=== PATIENT | female | born 1975 | race Hispanic/Latino ===

== ENCOUNTER 2018-12-30 08:25 | Emergency (ER) | payer OTHER ==
[2018-12-30] MEDS ORDERED: TRAMADOL HCL 50 MG TAB ONE (09:02)
--- NOTE | 2018-12-30 09:33 | EDPHYS ---
Physician Documentation [facility] Name: Winsome Jarrell Age: 43 yrs Sex: Female : 1975 Arrival Date: 12/30/2018 Time: 08:30 Bed 18 Private MD: None, None ED Physician Jamil Kitchen HPI: 12/30 08:46 This 43 yrs old Female presents to ER via Ambulatory with complaints of kdr Headache, Congestion. 08:46 The patient or guardian reports cough, that is intermittent, described as mild, kdr difficulty breathing, flu symptoms, arthralgias, low-grade fever, Facial congestion/sinus pressure, chest congestion and mild cough. Onset: The symptoms/episode began/occurred gradually, 3 day(s) ago. Severity of symptoms: At their worst the symptoms were mild, in the emergency department the symptoms are unchanged. Modifying factors: The symptoms are alleviated by nothing, the symptoms are aggravated by exertion. Associated signs and symptoms: Pertinent positives: sore throat, Pertinent negatives: chest pain, diarrhea, ear ache, vomiting. It is unknown whether or not the patient has had similar symptoms in the past. The patient has not recently seen a physician. Historical: - Allergies: 08:41 No Known Allergies; hb - Home Meds: 08:41 Synthroid Oral [Active]; losartan oral oral [Active]; gabapentin oral oral [Active]; hb Cymbalta oral oral [Active]; Lasix Oral [Active]; - PSHx: 08:41 knee - right; Thyroidectomy; hb - Immunization history:: Adult Immunizations up to date. - Social history:: Smoking status: Patient/guardian denies using tobacco. - Ebola Screening: : No symptoms or risks identified at this time. ROS: 08:46 Constitutional: Negative for fever, chills, and weight loss, Eyes: Negative for injury, kdr pain, redness, and discharge, Neck: Negative for injury, pain, and swelling, Cardiovascular: Negative for chest pain, palpitations, and edema. 08:46 ENT: Positive for sinus congestion, sinus pain, sore throat, Negative for drainage from ear(s), ear pain, Gum pain difficulty swallowing, difficulty handling secretions, hoarseness. Exam: 08:46 Constitutional: This is a well developed, well nourished patient who is awake, alert, kdr and in no acute distress. Head/Face: Normocephalic, atraumatic. Eyes: Pupils equal round and reactive to light, extra-ocular motions intact. Lids and lashes normal. Conjunctiva and sclera are non-icteric and not injected. Cornea within normal limits. Periorbital areas with no swelling, redness, or edema. Neck: Trachea midline, no thyromegaly or masses palpated, and no cervical lymphadenopathy. Supple, full range of motion without nuchal rigidity, or vertebral point tenderness. No Meningismus. Chest/axilla: Normal chest wall appearance and motion. Nontender with no deformity. No lesions are appreciated. Cardiovascular: Regular rate and rhythm with a normal S1 and S2. No gallops, murmurs, or rubs. Normal PMI, no JVD. No pulse deficits. Abdomen/GI: Soft, non-tender, with normal bowel sounds. No distension or tympany. No guarding or rebound. No evidence of tenderness throughout. Back: No spinal tenderness. No costovertebral tenderness. Full range of motion. Skin: Warm, dry with normal turgor. Normal color with no rashes, no lesions, and no evidence of cellulitis. MS/ Extremity: Pulses equal, no cyanosis. Neurovascular intact. Full, normal range of motion. Neuro: Awake and alert, GCS 15, oriented to person, place, time, and situation. Cranial nerves II-XII grossly intact. Motor strength 5/5 in all extremities. Sensory grossly intact. Cerebellar exam normal. Normal gait. Psych: Awake, alert, with orientation to person, place and time. Behavior, mood, and affect are within normal limits. 08:46 Head/face: Sinus tenderness, that is moderate, is located over the right frontal sinus, left frontal sinus, right ethmoid sinus, left ethmoid sinus, right maxillary sinus and left maxillary sinus. 08:46 Respiratory: the patient does not display signs of respiratory distress, Respirations: normal, Breath sounds: are clear throughout. Vital Signs: 08:38 BP 154 / 97; Pulse 71; Resp 16; Temp 98.1; Pulse Ox 100% on R/A; Pain 8/10; hb 09:46 BP 143 / 86; Pulse 71; Resp 18; Pulse Ox 99% on R/A; Pain 5/10; em MDM: 08:46 Data reviewed: vital signs, nurses notes, lab test result(s). Counseling: I had a kdr detailed discussion with the patient and/or guardian regarding: the historical points, exam findings, and any diagnostic results supporting the discharge/admit diagnosis, lab results. 09:32 Patient medically screened. [facility] 12/30 08:45 Order name: Flu; Complete Time: 09:31 kdr 12/30 08:45 Order name: Rapid Strep; Complete Time: 09:31 [facility] 12/30 09:19 Order name: Throat Culture EDMS Administered Medications: 08:57 Drug: traMADol 50 mg Route: PO; em 09:40 Follow up: Response: No adverse reaction; Pain is decreased em Disposition: 12/30/18 09:32 Discharged to Home. Impression: Acute frontal sinusitis, unspecified, Acute maxillary sinusitis, unspecified. - Condition is Stable. - Discharge Instructions: Sinusitis, Adult, [id number]. - Prescriptions for Mucinex DM 30- 600 mg Oral tablet extended release 12 hr - take 1 tablet by ORAL route every 12 hours as needed; 20 tablet. Tramadol 50 mg Oral Tablet - take 1 tablet by ORAL route every 8 hours as needed; 12 tablet. Amoxicillin 500 mg Oral Capsule - take 1 capsule by ORAL route every 8 hours for 10 days; 30 tablet. - Medication Reconciliation Form, Thank You Letter, Antibiotic Education form. - Follow up: None, None; When: 2 - 3 days; Reason: If symptoms return, Further diagnostic work-up, Recheck today's complaints, Continuance of care, Re-evaluation by your physician. - Problem is new. - Symptoms have improved. Signatures: Dispatcher [employer] [facility] Jamil Kitchen MD MD [facility] Joaquin Gonzalez, PLASTICS FACTORY WORKER PLASTICS FACTORY WORKER Marlene Guzmán, ARAVIND RN Corrections: (The following items were deleted from the chart) 09:48 09:32 12/30/2018 09:32 Discharged to Home. Impression: Acute frontal sinusitis, em unspecified; Acute maxillary sinusitis, unspecified. Condition is Stable. Forms are Medication Reconciliation Form, Thank You Letter, Antibiotic Education, Prescription Opioid Use. Follow up: None None; When: 2 - 3 days; Reason: If symptoms return, Further diagnostic work-up, Recheck today's complaints, Continuance of care, Re-evaluation by your physician. Problem is new. Symptoms have improved. kdr
--- NOTE | 2018-12-30 09:33 | ER ---
Nurse's Notes [facility] Name: Winsome Jarrell Age: 43 yrs Sex: Female : 1975 Arrival Date: 12/30/2018 Time: 08:30 Bed 18 Private MD: None, None Diagnosis: Acute frontal sinusitis, unspecified;Acute maxillary sinusitis, unspecified Presentation: 12/30 08:38 Presenting complaint: Sore throat, cough, headache, and sinus congestion x 1 week. hb Denies fever/body aches. Transition of care: patient was not received from another setting of care. Onset of symptoms was December 30, 2018. Risk Assessment: Do you want to hurt yourself or someone else? Patient reports no desire to harm self or others. Initial Sepsis Screen: Does the patient meet any 2 criteria? No. Patient's initial sepsis screen is negative. Does the patient have a suspected source of infection? No. Patient's initial sepsis screen is negative. Care prior to arrival: None. 08:38 Method Of Arrival: Ambulatory hb 08:38 Acuity: XENA 4 hb Historical: - Allergies: 08:41 No Known Allergies; hb - Home Meds: 08:41 Synthroid Oral [Active]; losartan oral oral [Active]; gabapentin oral oral [Active]; hb Cymbalta oral oral [Active]; Lasix Oral [Active]; - PSHx: 08:41 knee - right; Thyroidectomy; hb - Immunization history:: Adult Immunizations up to date. - Social history:: Smoking status: Patient/guardian denies using tobacco. - Ebola Screening: : No symptoms or risks identified at this time. Screenin:41 Abuse screen: Denies threats or abuse. Denies injuries from another. Nutritional hb screening: No deficits noted. Tuberculosis screening: No symptoms or risk factors identified. Fall Risk None identified. Assessment: 08:50 General: Appears in no apparent distress. uncomfortable, Behavior is calm, cooperative, em Denies fever. Pain: Complains of pain in forehead, right eye and left eye Pain currently is 8 out of 10 on a pain scale. Neuro: Level of Consciousness is awake, alert, obeys commands, Oriented to person, place, time, situation. Cardiovascular: Capillary refill < 3 seconds Patient's skin is warm and dry. Respiratory: Reports cough that is productive, pain with cough Airway is patent Respiratory effort is even, unlabored, Respiratory pattern is regular, symmetrical, Breath sounds are clear bilaterally. Denies cough. GI: Abdomen is flat, Patient currently denies. : No signs and/or symptoms were reported regarding the genitourinary system. EENT: Nares are clear Oral mucosa is moist. Throat is reddened has patchy exudate Reports nasal congestion nasal discharge. Derm: Skin is intact, is healthy with good turgor, Skin is pink, warm \T\ dry. Musculoskeletal: Range of motion: intact in all extremities. 09:00 Reassessment: I agree with previous assessment. hb 09:45 Reassessment: Patient appears in no apparent distress at this time. Patient and/or em family updated on plan of care and expected duration. Pain level reassessed. Patient is alert, oriented x 3, equal unlabored respirations, skin warm/dry/pink. rates pain 5/10 Patient states feeling better. Vital Signs: 08:38 BP 154 / 97; Pulse 71; Resp 16; Temp 98.1; Pulse Ox 100% on R/A; Pain 8/10; hb 09:46 BP 143 / 86; Pulse 71; Resp 18; Pulse Ox 99% on R/A; Pain 5/10; em ED Course: 08:30 Patient arrived in ED. sb2 08:30 None, None is Private Physician. sb2 08:33 Jamil Kitchen MD is Attending Physician. kdr 08:38 Arm band placed on. hb 08:39 Triage completed. hb 08:41 Patient has correct armband on for positive identification. Bed in low position. Call hb light in reach. Side rails up X 1. 08:43 Cat Lopes, RN is Primary Nurse. sv 08:57 Flu and/or RSV swab sent to lab. Strep swab sent to lab. em 09:31 None, None is Referral Physician. kdr 09:47 No provider procedures requiring assistance completed. Patient did not have IV access em during this emergency room visit. 09:48 Joaquin Gonzalez LVN is Primary Nurse. em Administered Medications: 08:57 Drug: traMADol 50 mg Route: PO; em 09:40 Follow up: Response: No adverse reaction; Pain is decreased em Outcome: 09:32 Discharge ordered by . kdr 09:47 Discharged to home ambulatory, with family. em 09:47 Condition: good 09:47 Discharge instructions given to patient, family, Instructed on discharge instructions, follow up and referral plans. medication usage, Demonstrated understanding of instructions, follow-up care, medications, Prescriptions given X 3. 09:48 Patient left the ED. em Signatures: Cat Lpoes, RN RN Jamil Peck MD MD kdr Munoz, Edgar, PHOTOGRAPHIC PLATEMAKER PHOTOGRAPHIC PLATEMAKER em Marlene Guzmán RN RN Ema Garza sb2
== END 2018-12-30 09:48 | disposition home or self-care (01) ==
LOC: ER 08:25
DX: J01.10 Acute frontal sinusitis, unspecified (principal); J01.00 Acute maxillary sinusitis, unspecified
CPT/HCPCS: 87070; 87081; 87804; 99283

== ENCOUNTER 2020-05-04 06:11 | Emergency (ER) | payer OTHER ==
--- OUTSIDE RECORDS SUMMARY | 2020-05-04 06:14 | XMS REPORT | Continuity of Care Document ---
:1975 Author Organization [facility] t Address [address] [place] [address] Care Team Providers Name Role Phone Unavailable Unavailable Unavailable Payers Payer Name Policy Type Policy Number Effective Date Expiration Date S ource Problems This patient has no known problems. Allergies, Adverse Reactions, Alerts This patient has no known allergies or adverse reactions. Medications This patient has no known medications. Procedures This patient has no known procedures. Results This patient has no known results.
[2020-05-04] MEDS ORDERED: KETOROLAC 30 MG/ML INJ ONE (06:28)
[2020-05-04] MEDS ORDERED: ONDANSETRON 4 MG/2 ML VIAL ONE (06:28)
[2020-05-04] MEDS ORDERED: NA CHLORIDE 0.9% 1,000 ML ONE (06:28)
[2020-05-04 06:37] LABS: Absolute Lymphocytes (CBC) 2.5 K/uL (0.7-4.9); Hematocrit 37.7 % (36.0-45.0); Lymphocytes % 21.5 % (15.3-44.8); MPV 9.1 fL (7.6-11.3); RBC Red Blood Cell Count 4.46 M/uL (3.86-4.86)
[2020-05-04 06:53] LABS: Urine Blood NEGATIVE (NEG); Urine Glucose NEGATIVE (NEG); Urine Protein NEGATIVE (NEG); Urine pH 8.5 (5.0-7.0)
[2020-05-04 06:54] LABS: Albumin 4.3 g/dL (3.4-5.0); Bilirubin Direct 0.1 mg/dL (0-0.2); Bilirubin Total 0.5 mg/dL (0.2-1.0); Potassium 4.3 mmol/L (3.5-5.1); Protein, Total 7.9 g/dL (6.4-8.2)
[2020-05-04 06:56] LABS: Urine Bacteria <20 /HPF (<20); Urine RBC <5 /HPF (NONE SEEN)
[2020-05-04 06:57] LABS: Urine Amorphous Sediment 1+ /HPF (NONE SEEN); Urine Culture Reflex Order NOT NEEDED
--- NOTE | 2020-05-04 07:15 | RAD REPORT ---
EXAM DESCRIPTION: CT - Stone Protocol - 05/04/2020 6:57 am CLINICAL HISTORY: Abdominal pain. COMPARISON: None. TECHNIQUE: Computed axial tomography of the abdomen pelvis was obtained without oral or IV contrast. Lack of IV and oral contrast limits evaluation of solid organs, bowel, appendix and vessels. Coronal reformatted images were obtained and reviewed. All CT scans are performed using dose optimization technique as appropriate and may include automated exposure control or mA/KV adjustment according to patient size. FINDINGS: A renal calculus is not seen. An ureteral calculus is not noted. A bladder calculus is not present. The liver, spleen, pancreas and adrenals appear grossly normal There is no evidence of diverticulitis. The appendix appears normal 12 x 6 centimeter complex cystic mass is present within the left anterior upper pelvis. Minimal free fluid is present within the pelvis. The mass compresses the bladder IMPRESSION: Negative for a genitourinary calculus 12 x 6 centimeter complex cystic mass anterior left pelvis may represent a benign complex ovarian cys t, ovarian cystadenoma or mesenteric cyst
[2020-05-04] MEDS ORDERED: FENTANYL CITR 100 MCG/2 ML ONE (08:12)
--- NOTE | 2020-05-04 09:25 | EDPHYS ---
Physician Documentation [facility] Name: Winsome Jarrell Age: 44 yrs Sex: Female : 1975 Arrival Date: 05/04/2020 Time: 06:12 Bed 5 Private MD: ED Physician Silvano Fraire HPI: 05/04 06:57 This 44 yrs old Female presents to ER via Ambulatory with complaints of Kidney jr8 Pain, Nausea. 06:57 Onset: The symptoms/episode began/occurred acutely, today. jr8 06:57 The patient complains of pain in the left flank. The pain radiates to the abdomen and jr8 left lower quadrant. Modifying factors: The symptoms are alleviated by nothing. the symptoms are aggravated by movement. Associated signs and symptoms: Pertinent positives: nausea, vomiting. Severity of pain: At its worst the pain was moderate in the emergency department the pain is unchanged. The patient has experienced a previous episode. The patient has not recently seen a physician. History of renal stones with lithotripsy in past. Stated that she started with abrupt onset of pain today that is not going away. FUR COMBER: 06:32 LMP 04/27/2020 rv Historical: - Allergies: 06:17 No Known Allergies; sg - Home Meds: 06:17 gabapentin Oral [Active]; Cymbalta Oral [Active]; losartan Oral [Active]; Synthroid sg Oral [Active]; Lasix Oral [Active]; - PMHx: 06:17 Diabetes - NIDDM; sg - PSHx: 06:13 knee - right; Thyroidectomy; sg - Immunization history:: Adult Immunizations up to date. - Social history:: Smoking status: . ROS: 06:57 Eyes: Negative for injury, pain, redness, and discharge, ENT: Negative for injury, jr8 pain, and discharge, Neck: Negative for injury, pain, and swelling, Cardiovascular: Negative for chest pain, palpitations, and edema, Respiratory: Negative for shortness of breath, cough, wheezing, and pleuritic chest pain, MS/Extremity: Negative for injury and deformity, Skin: Negative for injury, rash, and discoloration, Neuro: Negative for headache, weakness, numbness, tingling, and seizure. 06:57 Abdomen/GI: Positive for abdominal pain, nausea and vomiting. 06:57 Back: Positive for flank pain, on the left. Exam: 06:57 Eyes: Pupils equal round and reactive to light, extra-ocular motions intact. Lids and jr8 lashes normal. Conjunctiva and sclera are non-icteric and not injected. Cornea within normal limits. Periorbital areas with no swelling, redness, or edema. ENT: Nares patent. No nasal discharge, no septal abnormalities noted. Tympanic membranes are normal and external auditory canals are clear. Oropharynx with no redness, swelling, or masses, exudates, or evidence of obstruction, uvula midline. Mucous membranes moist. Neck: Trachea midline, no thyromegaly or masses palpated, and no cervical lymphadenopathy. Supple, full range of motion without nuchal rigidity, or vertebral point tenderness. No Meningismus. Cardiovascular: Regular rate and rhythm with a normal S1 and S2. No gallops, murmurs, or rubs. Normal PMI, no JVD. No pulse deficits. Respiratory: Lungs have equal breath sounds bilaterally, clear to auscultation and percussion. No rales, rhonchi or wheezes noted. No increased work of breathing, no retractions or nasal flaring. Skin: Warm, dry with normal turgor. Normal color with no rashes, no lesions, and no evidence of cellulitis. MS/ Extremity: Pulses equal, no cyanosis. Neurovascular intact. Full, normal range of motion. Neuro: Awake and alert, GCS 15, oriented to person, place, time, and situation. Cranial nerves II-XII grossly intact. Motor strength 5/5 in all extremities. Sensory grossly intact. Cerebellar exam normal. Normal gait. 06:57 Abdomen/GI: Inspection: obese Bowel sounds: active, all quadrants, Palpation: soft, in all quadrants, moderate abdominal tenderness, in the left lower quadrant, mass, is not appreciated, rebound tenderness, is not appreciated, voluntary guarding, is elicited in the left lower quadrant, involuntary guarding, is not appreciated, no appreciated organomegaly, Indicators: McBurney's point is not tender, Michel's sign is negative, Rovsing's sign is negative, Liver: tenderness, is not appreciated. 06:57 Back: pain, that is moderate, of the left flank, ROM is normal, normal spinal alignment noted, CVA tenderness, that is mild, is noted on the left, vertebral tenderness, is not appreciated. Vital Signs: 06:32 BP 170 / 79; Pulse 59; Resp 16; Temp 97.5; Pulse Ox 100% ; Weight 81.65 kg; Pain 10/10; rv 07:00 BP 183 / 95; Pulse 57; Resp 16; Pulse Ox 100% ; bp 08:00 BP 153 / 89; Pulse 82; Resp 19; Pulse Ox 97% on R/A; Pain 10/10; rb1 09:00 BP 128 / 73; Pulse 100; Resp 16; Pulse Ox 97% ; bp MDM: 06:14 Patient medically screened. jr8 09:22 Data reviewed: vital signs, nurses notes, lab test result(s), radiologic studies, CT jr8 scan, ultrasound. Data interpreted: Pulse oximetry: on room air is 97 %. Interpretation: normal. Counseling: I had a detailed discussion with the patient and/or guardian regarding: the historical points, exam findings, and any diagnostic results supporting the discharge/admit diagnosis, lab results, radiology results, the need for outpatient follow up, an OB/Gyne specialist, to return to the emergency department if symptoms worsen or persist or if there are any questions or concerns that arise at home. Response to treatment: the patient's symptoms have markedly improved after treatment. ED course: Patient better after pain medicine. No torsion where cysts are present on the Left ovary. Kept patient for a while to ensure sure was going to be able to tolerate pain which she has done so. Will refer to Manager Of Application Development surgery. Knows to come back if worse . 09:25 ED course: [facility] reveals no suspicious activity contraindicating giving patient jr8 prescriptive pain medications . 05/04 06:16 Order name: Basic Metabolic Panel; Complete Time: 07:00 05/04 06:16 Order name: CBC with Diff; Complete Time: 07:00 05/04 06:16 Order name: Hepatic Function; Complete Time: 07:00 05/04 06:16 Order name: Lipase; Complete Time: 07:00 05/04 06:29 Order name: Urine Microscopic Only; Complete Time: 07:00 05/04 06:49 Order name: Urine Dipstick--Ancillary (enter results); Complete Time: 07:00 05/04 06:16 Order name: IV Saline Lock; Complete Time: 06:30 05/04 06:29 Order name: CT Stone Protocol; Complete Time: 07:19 [facility] 05/04 06:49 Order name: Urine --Ancillary (enter results); Complete Time: 07:00 05/04 07:38 Order name: Transvaginal Study (probe) [facility] 05/04 06:16 Order name: Labs collected and sent; Complete Time: 06:30 [facility] 05/04 06:29 Order name: Urine Test (obtain specimen); Complete Time: 06:45 [facility] 05/04 06:29 Order name: Urine Dipstick-Ancillary (obtain specimen); Complete Time: 06:45 [facility] Administered Medications: 06:30 Drug: Zofran (Ondansetron) 4 mg Route: IVP; Site: left forearm; rv 06:30 Drug: TORadol - Ketorolac 15 mg Route: IVP; Site: left forearm; rv 06:45 Follow up: Response: Pain is decreased rv 06:30 Drug: NS 0.9% 1000 ml Route: IV; Rate: 1000 ml; Site: left forearm; rv 08:07 Drug: fentaNYL (PF) 50 mcg Route: IVP; Site: left antecubital; rb1 Disposition: 05/05 06:23 Co-signature as Attending Physician, Silvano Fraire MD I agree with the assessment and tw4 plan of care. Disposition: 05/04/20 09:24 Discharged to Home. Impression: Unspecified ovarian cysts, Abdominal and pelvic pain. - Condition is Stable. - Discharge Instructions: Abdominal Pain, Adult, Ovarian Cyst. - Prescriptions for Tylenol- Codeine #3 300-30 mg Oral Tablet - take 2 tablets by ORAL route every 6 hours As needed; 20 tablet. Zofran 4 mg Oral Tablet - take 1 tablet by ORAL route every 12 hours As needed; 20 tablet. - Medication Reconciliation Form, Thank You Letter, Antibiotic Education, Prescription Opioid Use form. - Follow up: Valencia Puckett MD; When: 1 - 2 days; Reason: Recheck today's complaints, Continuance of care, Re-evaluation by your physician. - Problem is new. - Symptoms have improved. Signatures: Dispatcher [employer] Jesus Alberto Stevens RN RN sg Kevin Abreu PA PA 8 Brenda Garcia, RN RN rb1 Mikhail Gonzalez RN RN Domenic Lujan MD MD tw4 Finn Steven, RN RN rv Corrections: (The following items were deleted from the chart) 05/04 09:38 09:24 05/04/2020 09:24 Discharged to Home. Impression: Unspecified ovarian cysts; bp Abdominal and pelvic pain. Condition is Stable. Forms are Medication Reconciliation Form, Thank You Letter, Antibiotic Education, Prescription Opioid Use. Follow up: Valencia Puckett; When: 1 - 2 days; Reason: Recheck today's complaints, Continuance of care, Re-evaluation by your physician. Problem is new. Symptoms have improved. jr8
--- NOTE | 2020-05-04 09:25 | ER ---
Nurse's Notes [facility] Name: Winsome Jarrell Age: 44 yrs Sex: Female : 1975 Arrival Date: 05/04/2020 Time: 06:12 Bed 5 Private MD: Diagnosis: Unspecified ovarian cysts;Abdominal and pelvic pain Presentation: 05/04 06:13 Acuity: XENA 3 sg 06:13 Coronavirus screen: Proceed with normal triage. Ebola Screen: Patient negative for sg fever greater than or equal to 101.5 degrees Fahrenheit, and additional compatible Ebola Virus Disease symptoms Patient denies exposure to infectious person. Patient denies travel to an Ebola-affected area in the 21 days before illness onset. No symptoms or risks identified at this time. Initial Sepsis Screen: Does the patient meet any 2 criteria? Does the patient have a suspected source of infection? Yes: Dysuria/Frequency/Urgency/UTI. Risk Assessment: Do you want to hurt yourself or someone else? Patient reports no desire to harm self or others. Onset of symptoms was May 04, 2020. Care prior to arrival: None. 06:13 Method Of Arrival: Ambulatory 06:13 Chief complaint: Patient states: N/V, reports pain in the upper back, symptoms began sg last night, worsening this morning. 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 - Social history:: Smoking status: . Screenin:31 Abuse screen: Denies threats or abuse. Denies injuries from another. Nutritional rv screening: No deficits noted. Tuberculosis screening: No symptoms or risk factors identified. Fall Risk None identified. Assessment: 06:30 General: Appears uncomfortable, Behavior is cooperative. Pain: Complains of pain in rv left low back Pain radiates to left lower quadrant Pain currently is 10 out of 10 on a pain scale. Neuro: Level of Consciousness is awake, alert, obeys commands, Oriented to person, place, time, situation. Cardiovascular: Patient's skin is warm and dry. Respiratory: Airway is patent Respiratory effort is even, unlabored. GI: Abdomen is round non-distended, Reports nausea, vomiting, since THIS MORNING. Derm: Skin is intact. 07:00 Reassessment: RECD REPORT FROM ERIC NAZARIO. 44YO HF P/W LEFT FLANK PAIN. PT RETURNED FROM bp CT, RESULTS PENDING. 08:07 Reassessment: Patient and/or family updated on plan of care and expected duration. Pain rb1 level reassessed. Patient is alert, oriented x 3, equal unlabored respirations, skin warm/dry/pink. US is at the pt. bedside. 09:00 Reassessment: U/S COMPLETE. RESULTS PENDING FOR DISPO. bp 09:37 Reassessment: PT D/C HOME AMBULATORY WITH FAMILY, DX WITH OVARIAN CYST. bp Vital Signs: 06:32 BP 170 / 79; Pulse 59; Resp 16; Temp 97.5; Pulse Ox 100% ; Weight 81.65 kg; Pain 10/10; rv 07:00 BP 183 / 95; Pulse 57; Resp 16; Pulse Ox 100% ; bp 08:00 BP 153 / 89; Pulse 82; Resp 19; Pulse Ox 97% on R/A; Pain 10/10; rb1 09:00 BP 128 / 73; Pulse 100; Resp 16; Pulse Ox 97% ; bp ED Course: 06:12 Patient arrived in ED. ds1 06:13 Triage completed. sg 06:13 Kevin Abreu PA is PHCP. jr8 06:13 Domenic Lujan MD is Attending Physician. jr8 06:13 Arm band placed on. sg 06:29 Finn Steven, ARAVIND is Primary Nurse. rv 06:29 Initial lab(s) drawn, by me, sent to lab. Inserted saline lock: 18 gauge in left rv forearm, using aseptic technique. Blood collected. 06:32 Patient has correct armband on for positive identification. Call light in reach. Side rv rails up X 1. Pulse ox on. NIBP on. 06:45 Urine Microscopic Only Sent. rv 06:[address] via wheelchair. rv 06:53 Patient moved back from CT. rv 06:53 Urine collected: clean catch specimen, cloudy. sg 06:58 CT Stone Protocol In Process Unspecified. EDMS 07:01 Primary Nurse role handed off by Finn Steven, ARAVIND bp 07:01 Mikhail Gonzalez, RN is Primary Nurse. bp 08:25 Transvaginal Study (probe) In Process Unspecified. EDMS 08:26 Attending Physician role handed off by Domenic Lujan MD jr8 08:26 Silvano Fraire MD is Attending Physician. jr8 09:24 Valencia Puckett MD is Referral Physician. jr8 09:37 No provider procedures requiring assistance completed. IV discontinued, intact, bp bleeding controlled, No redness/swelling at site. Pressure dressing applied. Administered Medications: 06:30 Drug: Zofran (Ondansetron) 4 mg Route: IVP; Site: left forearm; rv 06:30 Drug: TORadol - Ketorolac 15 mg Route: IVP; Site: left forearm; rv 06:45 Follow up: Response: Pain is decreased rv 06:30 Drug: NS 0.9% 1000 ml Route: IV; Rate: 1000 ml; Site: left forearm; rv 08:07 Drug: fentaNYL (PF) 50 mcg Route: IVP; Site: left antecubital; rb1 Outcome: 09:24 Discharge ordered by MD. jr8 09:37 Discharged to home ambulatory, with family. bp 09:37 Condition: stable 09:37 Discharge instructions given to patient, Instructed on discharge instructions, follow up and referral plans. medication usage, Demonstrated understanding of instructions, follow-up care, medications, Prescriptions given X 2. 09:38 Patient left the ED. bp Signatures: Dispatcher [employer] [facility] Jesus Alberto Salazar RN RN sg Leny Morse ds1 Kevin Abreu PA PA jr8 Brenda Garcia RN RN rb1 Mikhail Gonzalez RN RN bp Finn Steven, ARAVIND RN rv Corrections: (The following items were deleted from the chart) 06:18 06:13 Chief complaint: Patient states: N/V, reports pain in the upper back sg sg
[2020-05-04 09:44] VITALS: TEMP 97.5
[2020-05-04 09:46] VITALS: O2SAT 97
[2020-05-04 09:47] VITALS: BP 128/73
--- NOTE | 2020-05-04 10:31 | RAD REPORT ---
EXAM DESCRIPTION: US - Transvaginal Study Probe - 05/04/2020 8:27 am CLINICAL HISTORY: Pelvic mass COMPARISON: none FINDINGS: The uterus measures 7 x 2 x 4cm. A fibroid is not seen. Normal endometrial stripe The right ovary is normal in size and echotexture. An 11 x 4.4 centimeter cystic mass containing a septation appears to arise from the left ovary. The m ass does not appear to contain blood flow. Left ovary contains blood flow. The mass abuts the bladder Right adnexal unremarkable No significant free fluid is seen. IMPRESSION: 11 x 4.4 centimeter complex cystic left adnexal mass appears to arise from the left ovar y and could either represent a benign complex cyst or cystadenoma
== END 2020-05-04 09:38 | disposition home or self-care (01) ==
LOC: ER 06:11
DX: N83.202 Unspecified ovarian cyst, left side (principal); E11.9 Type 2 diabetes mellitus without complications
CPT/HCPCS: 85025; 80048; 36415; 81025; 80076; 83690; 76377; 74176; 76830; 99284; J3010; J7030; J2405; 81003; 81015